=== PATIENT | female | born 1985 | race Caucasian/White ===

== ENCOUNTER 2017-07-20 19:29 | Emergency (ER) | payer SELFPAY ==
[~2017-07-20] VITALS: Ht 165.1 cm; Wt 60.0 kg
[~2017-07-20 19:29] MED LIST: BENZ100 PO; Z.0.BCPILL PO
[2017-07-20 19:31] VITALS: BP 115/73; PULSE 90; RESP 16; TEMP 98.7; O2SAT 99
== END 2017-07-20 19:54 | disposition left against medical advice (07) ==
LOC: NED 19:29
DX: Z53.21 Procedure and treatment not carried out due to patient leaving prior to being seen by health care provider (principal)
CPT/HCPCS: 99281

== ENCOUNTER 2018-02-06 05:17 | Inpatient (IN) | payer OTHER ==
--- NOTE | 2018-02-05 12:59 | MH ---
cc: Sanjeev Mcnulty MD DATE OF ADMISSION: 02/06/2018 DATE OF : 1985 REASON FOR ADMISSION: The patient admitted for repeat elective section, desires tubal ligation. HISTORY OF PRESENT ILLNESS: The patient is a 32-year-old female, 3, para 1-1-0-1, history of previous section in 2009. The patient's estimated due date is 02/12/2018 confirmed by first trimester ultrasound 07/30/2017, fetus crown-rump length was 11 weeks and 3 days. The patient's course was unremarkable. The patient had healthy . Ultrasound findings were concerning for an anterior low lying placenta, which has since resolved. The patient's group B Strep status is negative. The patient's blood type is B-positive. The patient had a slightly elevated, 1-hour Glucola, confirmatory 3 hour was negative. PAST SURGICAL HISTORY: section in 2009. PAST MEDICAL HISTORY: She denies any systemic or chronic disease. ALLERGIES: NO KNOWN DRUG ALLERGIES. CURRENT MEDICATIONS: vitamins only. PHYSICAL EXAMINATION: GENERAL: The patient is a well-appearing female in no acute distress. VITAL SIGNS: Stable. Blood pressure 118/80. heart tones in the 140s. HEENT/NECK: No adenopathy or thyromegaly. LUNGS: Clear in all carbajal. CARDIAC: Regular rhythm. ABDOMEN: Gravid, soft, nontender. Fundal height is 40 cm. PELVIC: Deferred. EXTREMITIES: Symmetrical. 1+ edema of the lower extremities, no DVT. NEUROLOGIC: Grossly intact, nonfocal. ASSESSMENT: 1. The patient is at 39 weeks gestation for elective repeat section and tubal ligation at term. 2. Group B Strep status is negative. PLAN: Admit 02/06/2018 Sanjeev Mcnulty MD SJNeeraj/SB , 01:57 PM , 02:26 PM
[~2018-02-06] VITALS: Ht 165.1 cm; Wt 78.2 kg
[2018-02-06] VITALS (10 sets, daily range): BP systolic 103–123; BP diastolic 57–77; PULSE 18–109; RESP 16–20; TEMP 97.5–98.4; O2SAT 95–98
[2018-02-06] MEDS ORDERED: LACTATED RINGER'S 1000 ML IV ONE (06:00)
[2018-02-06] MEDS ORDERED: CEFAZOLIN INJ 2,000 MG in SODIUM CHLORIDE 0.9% INJ 100 ML IV ONE (06:00)
[2018-02-06] MEDS ORDERED: CITRIC ACID-SODIUM CITRATE LIQ 30 ML UDC PO SCH (06:00)
[2018-02-06] MEDS ORDERED: LACTATED RINGER'S 1000 ML IV SCH (06:00)
[2018-02-06 06:27] LABS: AUTOMATED NEUTROPHIL # 6.8 TH/MM3 (1.8-7.7); BASOPHIL # 0.1 TH/MM3 (0-0.2); BASOPHIL % 0.6 % (0.0-2.0); EOSINOPHIL # 0.1 TH/MM3 (0-0.4); EOSINOPHIL % 0.8 % (0.0-4.0); HEMATOCRIT 34.7 % (35.0-46.0); LYMPH % 24.4 % (9.0-44.0); LYMPHOCYTE # 2.4 TH/MM3 (1.0-4.8); MEAN CORPUSCULAR HEMOGLOBIN 29.7 PG (27.0-34.0); MEAN CORPUSCULAR HGB CONC 34.5 % (32.0-36.0); MEAN PLATELET VOLUME 8.5 FL (7.0-11.0); MONO % 4.6 % (0.0-8.0); MONOCYTE # 0.4 TH/MM3 (0-0.9); NEUT % 69.6 % (16.0-70.0); PLATELET COUNT 226 TH/MM3 (150-450); RED BLOOD COUNT 4.04 MIL/MM3 (4.00-5.30); RED CELL DISTRIBUTION WIDTH 15.7 % (11.6-17.2); WHITE BLOOD COUNT 9.7 TH/MM3 (4.0-11.0)
[2018-02-06] MEDS ORDERED: PREN1TAB45 PO (06:29)
[2018-02-06 06:49] LABS: BACTERIA, URINE FEW /hpf; BILIRUBIN, URINE NEG (NEG); BLOOD, URINE NEG (NEG); GLUCOSE,URINE NEG (NEG); HYALINE CAST, URINE 2 /lpf (RARE); KETONE, URINE NEG (NEG); MUCUS URINE FEW /lpf (OCC); NITRITE,URINE NEG (NEG); SQUAMOUS EPITHELIAL CELL URINE 4 /hpf (0-5); URINE COLOR YELLOW (YELLW/STRAW); URINE LEUKOCYTE ESTERASE SMALL (NEG)
[2018-02-06] MEDS ORDERED: MORPHINE SULFATE PF 5 MG/10 ML VIAL ONE (07:16)
[2018-02-06] MEDS ORDERED: ACETAMINOPHEN 1000 MG/100 ML 100 ML IV ONE (07:17)
[2018-02-06] MEDS ORDERED: ACETAMINOPHEN 325 MG TAB PO PRN (07:30)
[2018-02-06] MEDS ORDERED: SODIUM CHLORIDE 0.9% FLUSH 10 ML FLUSH IV FLUSH PRN (07:30)
[2018-02-06] MEDS ORDERED: KETOROLAC TROMETHAMINE 60 MG/2 ML (IM) VIAL IM PRN (07:30)
[2018-02-06] MEDS ORDERED: SIMETHICONE 80 MG CHEWABLE TAB PO PRN (07:30)
[2018-02-06] MEDS ORDERED: OXYTOCIN 30 UNITS-500ML PREMIX 500 ML IV ONE (07:30)
[2018-02-06] MEDS ORDERED: ONDANSETRON HCL 4 MG/2 ML VIAL IV PUSH PRN (07:30)
--- NOTE | 2018-02-06 08:54 | PD.OB.DELI ---
Procedure Note Section Procedure Performed by Sanjeev Mcnulty Procedure: Repeat Low Transverse Sec (lysis of adhesions,extensive) Indication for delivery: Desired elective repeat Informed consent obtained: For anesthesia, For procedure Confirmed correct: Patient, Procedure, Site, Time-out taken Anesthesia: Spinal Medication prior to procedure: As documented in eMAR Monitoring during procedure: Blood pressure monitoring, watch and clock repair clerk, doppler, Pulse oximetry Urinary catheter: Inserted using sterile technique, To dependent drainage Sterile preparation: Duraprep, In usual fashion Position: Supine with wedge to right side, Supine with safety belt applied Operative Features Skin Incision: Pfannenstiel Uterine Incision: Low transverse w/knife / blunt ext, Low transverse w/knife / scissors Membranes Ruptured: Artificially Presentation: Occiput anterior Delivery date: Feb 06, 2018 Delivery time: 07:59 Delivery of infant: Assisted (Vacuum x1 pull) Infant: Female One Minute : 9 Five Minute : 9 Weight: 6/14 Status of infant: Viable Placenta delivered: Intact Medications: Antibiotics, Oxytocin Estimated blood loss: 750cc Procedure tolerated: Well Maternal Condition: Stable Condition: Stable Sanjeev Mcnulty MD Feb 06, 2018 08:54
[2018-02-06] MEDS ORDERED: SODIUM CHLORIDE 0.9% FLUSH 10 ML FLUSH IV FLUSH SCH (09:00)
[2018-02-06] MEDS ORDERED: EPIDURAL-DIPHENHYDRAMINE HCL 50 MG CAP PO PRN (10:15)
[2018-02-06] MEDS ORDERED: EPIDURAL-DO NOT ADMINISTER ANTICOAGULANTS PRN (10:15)
[2018-02-06] MEDS ORDERED: EPIDURAL-NO SYSTEMIC NARCOTICS PRN (10:15)
[2018-02-06] MEDS ORDERED: EPIDURAL-NALOXONE HCL 0.4 MG/ML AMP IV PUSH PRN (10:15)
[2018-02-06] MEDS ORDERED: EPIDURAL-DIPHENHYDRAMINE HCL 50 MG/ML VIAL IV PUSH PRN (10:15)
[2018-02-06] MEDS ORDERED: ONDANSETRON HCL 4 MG/2 ML VIAL IV ONE (12:00)
[2018-02-06] MEDS ORDERED: OXYTOCIN 10 UNIT/ML AMP IV ONE (12:00)
[2018-02-06] MEDS ORDERED: ceFAZolin INJ 1,000 MG VIAL IV ONE (12:00)
[2018-02-06] MEDS ORDERED: DEXAMETHASONE SOD PHOS 4 MG/ML VIAL IV ONE (12:00)
[2018-02-06] MEDS ORDERED: LACTATED RINGER'S 1000 ML INJ 2,000 ML IV ONE (12:00)
[2018-02-06] MEDS ORDERED: ePHEDrine/NS 25 MG/5 ML SYRINGE IV ONE (12:00)
[2018-02-06] MEDS ORDERED: LACTATED RINGER'S 1000 ML INJ 1,000 ML IV SCH (12:24)
--- NOTE | 2018-02-06 14:11 | MP ---
cc: Sanjeev Mcnulty MD DATE OF OPERATION: 02/06/2018 DATE OF PROCEDURE: 02/05/2018 PREOPERATIVE DIAGNOSIS: Term intrauterine with previous section, for elective repeat. PROCEDURE PERFORMED: Repeat low transverse section with extensive lysis of adhesions due to previous section scar, delivery of viable female . POSTOPERATIVE DIAGNOSIS: Term intrauterine with previous section, for elective repeat. SURGEON: Sanjeev Mcnulty MD ANESTHESIA: Spinal. ESTIMATED BLOOD LOSS: 750 mL. DRAINS: [place] to gravity. OPERATIVE FINDINGS: The patient delivered a viable female . Apgars were 9 at 1 minute and 9 at 5. Baby weighed 6 pounds 14 ounces. A 3-vessel cord. Intact placenta. Operative findings were notable for adhesions involving the uterus to the anterior rectus. This was above the hysterotomy scar, which required significant dissection to gain entry into the peritoneal cavity. DESCRIPTION OF PROCEDURE: The patient received Ancef 2 grams prophylactically. She underwent spinal anesthetic without complication. She was prepped and draped and a [place] catheter was inserted by sterile technique. She had sequential was placed on lower extremities for VTE prophylaxis. After she was prepped and draped, timeout was conducted, agreed by all present in the room. The patient was tested and she had excellent pain control with the spinal anesthetic. The previous Pfannenstiel scar was used. This was opened using a 10 blade, carrying the incision through the subcutaneous space to the fascia, which was scored laterally and dissected from the rectus muscle. Rectus muscle was adherent in the midline. It was dissected in the midline and then entry was complicated by the absence of a peritoneal window. The entry point was well out of the vicinity of the bladder. The entry was accomplished, after entering laterally finding a peritoneal window and then identifying a thick fibrous scar between the anterior uterine surface and the rectus muscle. This was taken down by sharp dissection. This allowed placement of the bladder blade over the pubic symphysis to evaluate and examine the lower uterine segment, which was clear. There were no adhesions. The incision was made after opening the peritoneum sharply and then placing the bladder blade over the peritoneum, making a transverse incision in the lower uterine segment with clear fluid. The vertex was brought through the incision with the aid of a vacuum extractor and then the was delivered in total. There was a nuchal cord easily reduced x 1. Good tone and cry were noted. The infant was voiding spontaneously on the field and the infant cord was doubly clamped and cut and the was taken to the [place] by the NICU nursery staff present. The cord sample was obtained for typing and then the placenta was removed intact with trailing membranes. Continued our dissection of the adhesion was necessary in order to exteriorize the uterus and to close it effectively. Once the uterus was exteriorized, the lower uterine segment was closed with a running locking suture of 0 Monocryl. There was a linear defect that was superficial on the anterior uterine surface which was oversewn with a simple running suture of 2-0 Monocryl to control hemostasis. Again, this was superficial. This was not deep in the myometrium. Continued closure of the lower uterine segment was accomplished by placing a second imbricating suture of 2-0 Monocryl to reinforce the hysterotomy incision. The uterus was then returned to its normal anatomic position in the pelvis, observing that the adnexa were normal. The pelvis was irrigated and examined. There was no active bleeding or hematoma. Examination of the adjacent vital structures were normal. At this point, full count was made and correct and a piece of Interceed was introduced and placed over the anterior uterine surface to prevent adhesions from the closure. The peritoneum was then closed with a simple running suture of 2-0 Monocryl, and then the lower rectus muscle was loosely reapproximated with interrupted mattress suture of 2-0 Monocryl. The fascia was then closed with 0 Vicryl in a simple running fashion with good closure integrity and then the subcutaneous space was observed for any active bleeding. Any active bleeding was cauterized with the Bovie and then the space was reapproximated and closed with a running suture of 2-0 Monocryl. [place] were used to close the skin. At the completion of the case, a pressure dressing was applied due to the small amount of oozing and the infant was doing well in the recovery room. MD CECI Brewer/JOSHUA , 01:46 PM , 02:09 PM
[2018-02-06] MEDS ORDERED: OXYTOCIN 30 UNITS-500ML PREMIX 500 ML IV PRN (17:30)
[2018-02-07] VITALS: BP 105/63; PULSE 79; RESP 16; TEMP 98
[2018-02-07] MEDS: oxyCODONE/ACETAMINOPHEN 5 MG/325 MG TAB PO PRN ×3 (03:40→20:46)
[2018-02-07] MEDS: IBUPROFEN 600 MG TAB PO PRN ×3 (03:41→20:46)
[2018-02-07 04:00] VITALS: BP 98/61; PULSE 72; RESP 16; TEMP 98
[2018-02-07 07:28] LABS: AUTOMATED NEUTROPHIL # 8.8 TH/MM3 (1.8-7.7); BASOPHIL # 0.1 TH/MM3 (0-0.2); BASOPHIL % 0.4 % (0.0-2.0); EOSINOPHIL % 0.3 % (0.0-4.0); HEMATOCRIT 29.9 % (35.0-46.0); LYMPH % 23.2 % (9.0-44.0); LYMPHOCYTE # 2.9 TH/MM3 (1.0-4.8); MEAN CELL VOLUME 87.6 FL (80.0-100.0); MEAN CORPUSCULAR HEMOGLOBIN 29.4 PG (27.0-34.0); MEAN CORPUSCULAR HGB CONC 33.5 % (32.0-36.0); MEAN PLATELET VOLUME 8.3 FL (7.0-11.0); MONO % 5.5 % (0.0-8.0); MONOCYTE # 0.7 TH/MM3 (0-0.9); NEUT % 70.6 % (16.0-70.0); PLATELET COUNT 193 TH/MM3 (150-450); RED BLOOD COUNT 3.42 MIL/MM3 (4.00-5.30); RED CELL DISTRIBUTION WIDTH 15.9 % (11.6-17.2); WHITE BLOOD COUNT 12.5 TH/MM3 (4.0-11.0)
[2018-02-07 08:30] VITALS: BP 89/69; PULSE 76; RESP 16; TEMP 98
--- NOTE | 2018-02-07 09:45 | HHI.OB ---
Subjective Post Operative Day: 1 Remarks Feeling well, wants Antunez out. Urine clear now. Objective Vitals/I&O Vital Signs Date Time Temp Pulse Resp B/P (MAP) Pulse Ox O2 Delivery O2 Flow Rate FiO2 02/07/18 08:30 98.0 76 16 89/69 (76) 02/07/18 04:00 98.0 72 16 02/07/18 04:00 98/61 (73) 02/07/18 00:00 98.0 79 16 105/63 (77) 02/06/18 20:00 98.4 109 20 105/69 (81) 98 02/06/18 15:29 65 108/72 (84) 02/06/18 15:29 97.9 18 02/06/18 10:25 18 95 02/06/18 10:25 65 109/76 (87) 02/06/18 09:43 97.6 98 02/06/18 09:43 123/57 (79) 02/06/18 09:43 70 16 Result Diagram: 02/07/18 0700 Objective Remarks GENERAL: Well-nourished, well-developed patient. CARDIOVASCULAR: Regular rate and rhythm without murmurs, gallops, or rubs. RESPIRATORY: Breath sounds equal bilaterally. No accessory muscle use. ABDOMEN/GI: Abdomen soft, non-tender, bowel sounds present. Incision: Clean, dry and intact. marco a in place Fundus: Firm, non-tender at umbilicus. GENITOURINARY: Light to moderate bleeding.urine clear in antunez EXTREMITIES: No cyanosis or edema, non-tender, without signs of DVT. Medications and IVs Current Medications Medications (Trade) Dose Ordered Sig/Margarita Route Start Time Stop Time Status Last Admin (Bicitra Liq) 30 ml MECHANICAL ENGINEERING TECHNICIAN PO 02/06/18 06:00 02/09/18 05:59 02/06/18 07:09 Oxytocin 500 ml @ 100 mls/hr UNSCH X1 PRN IV 02/06/18 17:30 02/07/18 17:29 (NS Flush) 2 ml BID IV FLUSH 02/06/18 09:00 (NS Flush) 2 ml UNSCH PRN IV FLUSH 02/06/18 07:30 (Mylicon Chew) 80 mg QID PRN PO 02/06/18 07:30 (Tylenol) 650 mg Q6H PRN PO 02/06/18 07:30 (Motrin) 600 mg Q6H PRN PO 02/06/18 07:30 02/07/18 03:41 (Percocet 5-325 Mg) 1 tab Q4H PRN PO 02/06/18 07:30 (Percocet 5-325 Mg) 2 tab Q4H PRN PO 02/06/18 07:30 02/07/18 03:40 (Vicki-Colace) 2 tab Q12H PRN PO 02/06/18 07:30 (M-M-R Ii Inj) 0.5 ml ONCE ONCE SQ 02/07/18 16:00 02/07/18 16:01 (Boostrix Inj) 0.5 ml ONCE ONCE IM 02/07/18 16:00 02/07/18 16:01 (Zofran Inj) 4 mg Q6H PRN IV PUSH 02/06/18 07:30 02/06/18 14:15 Miscellaneous Information NO SYSTEMIC NARCOTICS TO BE GIVEN FO... UNSCH PRN .XX 02/06/18 10:15 02/07/18 10:14 (Narcan Inj) 0.4 mg UNSCH PRN IV PUSH 02/06/18 10:15 02/07/18 10:14 (Benadryl Inj) 25 mg Q6H PRN IV PUSH 02/06/18 10:15 02/07/18 10:14 02/06/18 14:15 (Benadryl) 50 mg Q6H PRN PO 02/06/18 10:15 02/07/18 10:14 Miscellaneous Information ALL NURSING DEPARTMENTS UNSCH PRN .XX 02/06/18 10:15 02/07/18 10:14 Assessment/Plan Problem List: (1) Status post repeat low transverse section ICD Codes: Z98.891 - History of uterine scar from previous surgery Assessment and Plan POD 1 s/p RLTCD with extensive adhesive disease POD 1 cont routine care Adhesive disease- discussed difficulty of procedure as relayed to me by Dr. Mcnulty. Discussed if she has another , she can have more scarring and procedure can be riskier. Pt very emotional. Discharge Planning dispo pod 2-3 Charis Motley MD Feb 07, 2018 09:45
[2018-02-07] MEDS: DOCUSATE SODIUM 50 MG/SENNA 8.6 MG TAB PO PRN (14:32)
[2018-02-07] MEDS ORDERED: DIPHTH/TETANUS/ACEL PERTUSSIS (BOOSTER) 0.5 ML VIAL/PFS IM ONE (16:00)
[2018-02-07] MEDS ORDERED: MEASLES, MUMPS, RUBELLA VACCINE 0.5 ML VIAL SQ ONE (16:00)
[2018-02-07 20:00] VITALS: BP 123/79; PULSE 109; RESP 20; TEMP 98.3
[2018-02-07] MEDS ORDERED: diphenhydrAMINE HCL 50 MG CAP PO PRN (22:30)
[2018-02-08] MEDS: DOCUSATE SODIUM 50 MG/SENNA 8.6 MG TAB PO PRN (05:58)
[2018-02-08] MEDS: IBUPROFEN 600 MG TAB PO PRN (05:59)
[2018-02-08] MEDS: oxyCODONE/ACETAMINOPHEN 5 MG/325 MG TAB PO PRN (06:00)
[2018-02-08 08:05] VITALS: BP 111/75; PULSE 75; RESP 16; TEMP 98.2
--- NOTE | 2018-02-08 09:05 | HHI.OB ---
Subjective Post Operative Day: 2 Remarks doing well, desires d/c today. baby ready for d/c Objective Vitals/I&O Vital Signs Date Time Temp Pulse Resp B/P (MAP) Pulse Ox O2 Delivery O2 Flow Rate FiO2 02/07/18 20:00 98.3 109 20 123/79 (94) Result Diagram: 02/07/18 0700 Objective Remarks GENERAL: Well-nourished, well-developed patient. CARDIOVASCULAR: Regular rate and rhythm without murmurs, gallops, or rubs. RESPIRATORY: Breath sounds equal bilaterally. No accessory muscle use. ABDOMEN/GI: Abdomen soft, non-tender, bowel sounds present. Incision: Clean, dry and intact. marco a in place Fundus: Firm, non-tender at umbilicus. GENITOURINARY: Light to moderate bleeding.urine clear in antunez EXTREMITIES: No cyanosis or edema, non-tender, without signs of DVT. Medications and IVs Current Medications Medications (Trade) Dose Ordered Sig/Margarita Route Start Time Stop Time Status Last Admin (Bicitra Liq) 30 ml BIRD SITTER PO 02/06/18 06:00 02/09/18 05:59 02/06/18 07:09 (NS Flush) 2 ml BID IV FLUSH 02/06/18 09:00 (NS Flush) 2 ml UNSCH PRN IV FLUSH 02/06/18 07:30 (Mylicon Chew) 80 mg QID PRN PO 02/06/18 07:30 (Tylenol) 650 mg Q6H PRN PO 02/06/18 07:30 (Motrin) 600 mg Q6H PRN PO 02/06/18 07:30 02/08/18 05:59 (Percocet 5-325 Mg) 1 tab Q4H PRN PO 02/06/18 07:30 02/08/18 06:00 (Percocet 5-325 Mg) 2 tab Q4H PRN PO 02/06/18 07:30 02/07/18 20:46 (Vicki-Colace) 2 tab Q12H PRN PO 02/06/18 07:30 02/08/18 05:58 (Zofran Inj) 4 mg Q6H PRN IV PUSH 02/06/18 07:30 02/06/18 14:15 (Benadryl) 50 mg Q6H PRN PO 02/07/18 22:30 02/07/18 22:49 Assessment/Plan Problem List: (1) Status post repeat low transverse section ICD Codes: Z98.891 - History of uterine scar from previous surgery Assessment and Plan POD 2s/p RLTCD with extensive adhesive disease POD 2 cont routine care Adhesive disease- discussed difficulty of procedure as relayed to me by Dr. Mcnulty and operative report. Discussed if she has another , she can have more scarring and procedure can be riskier. Pt very emotional. Will discuss further w Dr. Mcnulty at postop visit. Discharge Planning dispo pod 2-3 Charis Motley MD Feb 08, 2018 09:05
[2018-02-08] MEDS ORDERED: OXYC1TAB63 PO (09:06)
[2018-02-08] MEDS ORDERED: IBUP-232 PO (09:06)
--- NOTE | 2018-02-08 10:02 | HHI.DCPOC ---
Discharge Care Plan Diagnosis: (1) Status post repeat low transverse section Your Health Problems Are: delivery Report Symptoms to Your Doctor -Temperature above 100.5 degrees -Redness, of incision or excessive or foul smelling drainage -Unusual pain or calf pain -Increased vaginal bleeding -Painful or difficulty urinating -Feelings of extreme sadness or anxiety after 2 weeks Goals to Promote Your Health * To prevent worsening of your condition and complications * To maintain your health at the optimal level Directions to Meet Your Goals Take your medications as prescribed Follow your dietary instruction Follow activity as directed Ensure plenty of rest for recovery Drink fluids for hydration Keep your appointments as scheduled Take your immunizations and boosters as scheduled If your symptoms worsen call your PCP, if no PCP go to Urgent Care Center or Emergency Room Smoking is Dangerous to Your Health. Avoid second hand smoke Call the 24-hour crisis hotline for domestic abuse at Charis Motley MD Feb 08, 2018 10:02
== END 2018-02-08 10:59 | disposition home or self-care (01) | DRG 766 ==
LOC: H2EB 05:17 → H1EA 09:51
PROVIDERS: ADMIT Obstetrics & Gynecology; ATTEND Obstetrics & Gynecology
PROC: 10D00Z1 Extraction of Products of Conception, Low, Open Approach (ICD-10-PCS; principal; 2018-02-06)
PROC: 0UB70ZZ Excision of Bilateral Fallopian Tubes, Open Approach (ICD-10-PCS; 2018-02-06)
PROC: 0DNW0ZZ Release Peritoneum, Open Approach (ICD-10-PCS; 2018-02-06)
DX: O34.211 Maternal care for low transverse scar from previous cesarean delivery (principal); N73.6 Female pelvic peritoneal adhesions (postinfective); O99.89 Other specified diseases and conditions complicating pregnancy, childbirth and the puerperium; Z30.2 Encounter for sterilization; Z37.0 Single live birth; Z3A.39 39 weeks gestation of pregnancy
CPT/HCPCS: 59025; 80307; 81001; 85025; 86850; 86900; 86901; C1765; J0131; J0690; J1100; J1200; J1885; J2274; J2405; J2590; J3010; J7120; Q0163